=== PATIENT | male | born 1955 | race Caucasian/White ===

== ENCOUNTER 2024-09-13 16:15 | Emergency (ER) | payer OTHER, SELFPAY ==
[2024-09-13 16:30] VITALS: BMI 28.7
[2024-09-13 16:31] VITALS: BP 181/63
[2024-09-13] MEDS: BENADRYL 25 MG IV (16:35)
[2024-09-13] MEDS: PEPCID 20 MG IV (16:35)
[2024-09-13] MEDS: ZOFRAN 4 MG IV (16:36)
[2024-09-13] MEDS: SOLU-MEDROL PF 40 MG IV (16:36)
[2024-09-13 16:56] LABS: Hematocrit 39.4 % (39.0-52.0); Hemoglobin 14.5 g/dL (13.0-18.0); Mean Corp Hgb Conc. 36.8 g/dL (33.0-37.0); Mean Corpuscular Volume 90.0 fL (80.0-94.0); Nucleated Red Blood Cells % 0 % (-); Platelet Count 118 10^3/uL (130-400); Red Cell Dist. Width 11.9 % (11.5-14.5)
[2024-09-13 17:00] VITALS: BP 130/63
[2024-09-13 17:00] LABS: ALT (SGPT) 70 U/L (0-50); AST (SGOT) 34 U/L (17-59); Albumin 4.3 g/dl (3.5-5.0); Alkaline Phosphatase 64 U/L (38-126); Blood Urea Nitrogen 24 mg/dl (9-20); Calcium 9.1 mg/dl (8.4-10.2); Carbon Dioxide 24 mmol/L (22-30); Chloride 107 mmol/L (98-107); Estimated Creatinine Clearance 55 ml/min; Glucose 142 mg/dl (70-99); Potassium 3.6 mmol/L (3.5-5.1); Sodium 140 mmol/L (135-145); Total Protein 6.7 g/dl (6.3-8.2); eGFR 59.47
[2024-09-13 17:01] VITALS: BP 130/63
[2024-09-13 18:00] VITALS: BP 164/76
--- NOTE | 2024-09-13 18:48 | ED.GENMED ---
History of Present Illness
General
Chief Complaint: Allergic Reaction
Source: patient
Time Seen by Provider: 09/13/24 16:28
History of Present Illness
History of Present Illness:
68-year-old male with no significant past medical history presents emergency department for evaluation after he was stung by a bee approximately 45 minutes prior to arrival to the emergency department, shortly after being stung patient started
having vomiting, had a bowel movement and felt near syncopal. Patient gave himself an EpiPen into the right thigh, upon arrival to the emergency department states feels very jittery. Patient was unaware of any other medications provided but EMS
reportedly gave Zofran, Decadron and Benadryl as well as patient received approximately 750 mL of normal saline. Patient arrives here stating he still feels nauseous. Denies any chest pain or shortness of breath, throat closing sensation, rashes
or any other concern presentlys
Past History
Past History
ED Past Medical History: Negative Arrthythmia, HTN, Hypercholesterolemia or NIDDM
ED Past Surgical History: None
Social History
Tobacco: Non-smoker
Alcohol: Occasional
Drug: None
Personal:
Living: with family
Review of Systems
Review of Systems
All Other Systems: ROS reviewed and negative except as documented in HPI and ROS
Phy Exam
Physical Exam
Physical Exam:
GENERAL: Alert , in no apparent distress but appears very anxious
EYE: conjunctiva clear
NECK: Supple
ENT: o/p clr, mmm.
CARDIAC: Regular rate and rhythm
LUNGS: Clear breath sounds bilaterally, no acute respiratory distress, no wheezes/rales/rhonchi
NEUROLOGICAL: Alert and oriented
SKIN: Warm and dry, skin intact.
MUSCULOSKELETAL: well perfused.
PSYCH: Normal and appropriate interaction.
Scores
Heart Failure Risk
Heart Failure Risk Score: Not Applicable
Heart Score for Chest Pain Patients
STEMI patient?: Not applicable
Withdrawal Assessment of Alcohol
Withdrawal Assessment Completed?: Not applicable
Course
Orders/Labs/Results
Orders:
Orders
09/13/24 16:23
Electrocardiogram (*1) Urgent
Reason for Study: Vertigo / Dizzy
EKG- Treatment ONCE
09/13/24 16:31
Diphenhydramine [Benadryl] 25 mg IV NOW STA
Famotidine [Pepcid] 20 mg IV NOW STA
MethylPREDNISolone PF [Solu-Medrol Pf] 40 mg IV NOW STA
Ondansetron Injectable [Zofran] 4 mg IV NOW STA
09/13/24 16:39
CMP [Comprehensive Metabolic Panel] Urgent
Complete Blood Count/With Diff Urgent
Abnormal Lab Results
09/13/24
16:39
RBC 4.38 L 10^6/uL
(4.70-6.10)
MCH 33.1 H pg
(27.0-31.0)
Plt Count 118 L 10^3/uL
(130-400)
MPV 12.0 H fL
(7.4-10.4)
BUN 24 H mg/dl
(9-20)
Glucose 142 H mg/dl
(70-99)
ALT 70 H U/L
(0-50)
09/13/24 16:39
09/13/24 16:39
Vital Signs
Initial and Last Documented VS:
Initial Vital Signs
Pulse Resp Pulse Ox
62 20 98
09/13/24 16:28 09/13/24 16:28 09/13/24 16:28
Last Documented Vital Signs
Temp Pulse Resp BP Pulse Ox
97.6 F 58 16 164/76 95
09/13/24 16:31 09/13/24 19:45 09/13/24 19:45 09/13/24 18:00 07/05/25 19:45
MDM/Problems Addressed
Differential Diagnosis Includes:
- Anaphylaxis
- Vagal event
- Orthostasis
- Electrolyte imbalance
- Medication side effects
MDM/Problems Addressed:
68-year-old male presenting to the emergency department for evaluation after being stung by a bee. Patient reportedly has a history of reaction to bee sting however when further questioned sounds like patient may have passed out previously when he
was stung but never had anaphylaxis. He already provided himself with an EpiPen and EMS treated patient with additional medications. Treated here with additional Benadryl, Solu-Medrol and Pepcid. 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 Will
continue to observe for any potential signs of anaphylaxis. As long as patient remains stable anticipate he will be safe to be discharged home, will give a new prescription for EpiPen.
*Pulse Oximetry
SaO2: 97
Oxygen Mode of Delivery: Room air
Patient hypoxic: no
*EKG
Heart Rate: 60
Rate: normal
Rhythm: sinus
Ischemia: no ischemia
*Offset Press Assistant Interpretation
Rate: normal
Heart Rate: 64
Rhythm: sinus
*Critical Care Note
Total Time (30-74mins, 75-104mins- exclusive of procedures): 30
comment:
Critical care statement: A total of 30 minutes of critical care time was provided for this patient. This includes management of unstable vital signs, evaluation of the patient at bedside, reviewing the patient's pertinent medical records, discussion
with consultants, review of old EKGs and review of pertinent medical records. This time with separate from time utilized to perform the aforementioned documented procedures
Patient Management
Escalation/DeEscalation of care consider admission/obs:
Patient has remained hemodynamically stable, well-appearing and requesting to be discharged home. I sent a new prescription for EpiPen to patient's pharmacy. Aware of return precautions to the ER. Otherwise stable for discharge home.
ED Attending Note
-
Portions of this chart may have been created with voice recognition software.� Occasional wrong word or��sound alike� substitutions may have occurred due to the inherent limitations of voice recognition software.
Discharge Plan
Departure
Patient Disposition: Home (Routine Discharge)
Date of Disposition: 09/13/24
Time of Disposition: 19:54
Patient with high blood pressure during this ER visit?: Yes
Discharge Problem:
Bee sting
Instructions: Insect bites and stings - ED discharge instructions
Prescriptions:
New
epinephrine [EpiPen] 0.3 mg/0.3 mL auto-injector
0.3 mg IM ONCE Qty: 1 0RF
Referrals:
Donavon Valverde MD [Family Provider, [facility]]
Interventions
Interventions:
*Risk Screen - Suicide Last Done: 09/13/24 16:31
*General Assessment Last Done: 09/13/24 16:31
*Neglect/Abuse Screening Last Done: 09/13/24 16:31
*ED- Fall Risk Assessment Last Done: 09/13/24 16:31
*ED COVID-19 Vaccine History Last Done: 09/13/24 16:31
ED- Cardiac Assessment Last Done: 09/13/24 16:31
ED- Pulmonary Assessment Last Done: 09/13/24 16:31
ED-Skin Assessment Last Done: 09/13/24 16:31
Discharge Date and Time
Print Language: SAL[place]
== END 2024-09-13 20:34 | disposition home or self-care (01) ==
LOC: EMR 16:15
PROVIDERS: EMERGENCY PHYSICIAN Student in an Organized Health Care Education/Training Program; FAMILY PHYSICIAN Surgery
DX: T63.441A Toxic effect of venom of bees, accidental (unintentional), initial encounter (principal); R11.10 Vomiting, unspecified; R55 Syncope and collapse
CPT/HCPCS: 96374; 96375; 99284; 80053; 85025; 93005